=== PATIENT | male | born 1985 | race Hispanic/Latino ===

== ENCOUNTER 2017-11-03 06:49 | Emergency (ER) | payer OTHER ==
[2017-11-03 06:57] VITALS: O2SAT 97
--- NOTE | 2017-11-03 08:28 | ED PDOC ---
HPI: Male Pain Time Seen by Provider: 11/03/17 07:21 Chief Complaint (Nursing): Male Genitourinary Chief Complaint (Provider): Male Genitourinary History Per: Patient History/Exam Limitations: no limitations Onset/Duration Of Symptoms: Hrs (x 4) Current Symptoms Are (Timing): Constant Severity: Severe Quality Of Discomfort: Sharp, Stabbing Associated Symptoms: Other (Dysuria). denies: Fever, Chills, Nausea, Vomiting Additional Complaint(s): 31 years old male presents to the ED complaining of constant right-sided flank pain associated with dysuria and difficulty urinating onset 4 hours. Patient describes pain as stabbing, sharp, sever and intense and reports radiation of pain to right groin. He states he never experienced this pain before. Patient denies any nausea, vomiting, fever, chills, experiencing bloody urine or taking any medication for pain. PMD: non provided Past Medical History Reviewed: Historical Data, Nursing Documentation, Vital Signs Vital Signs: Last Vital Signs Temp 97.9 F 11/03/17 07:04 Pulse 81 11/03/17 07:04 Resp 18 11/03/17 07:04 BP 137/83 11/03/17 07:04 Pulse Ox 97 11/03/17 07:04 - Medical History PMH: Migraine Denies: Chronic Kidney Disease - Surgical History Surgical History: No Surg Hx - Family History Family History: States: Unknown Family Hx - Social History Current smoker - smoking cessation education provided: No Alcohol: Social Drugs: Denies - Immunization History Hx Tetanus Toxoid Vaccination: No Hx Influenza Vaccination: No Hx Pneumococcal Vaccination: No - Home Medications Home Medications: Ambulatory Orders Medication Instructions Recorded Ciprofloxacin HCl [Cipro] 500 mg PO BID #14 tablet 11/03/17 Tamsulosin [Flomax] 0.4 mg PO DAILY #10 cap 11/03/17 - Allergies Allergies/Adverse Reactions: Allergies Allergy/AdvReac Type Severity Reaction Status Date / Time amoxicillin Allergy SHORTNESS Verified 11/03/17 07:08 OF BREATH Review of Systems ROS Statement: Except As Marked, All Systems Reviewed And Found Negative Constitutional: Negative for: Fever, Chills Gastrointestinal: Positive for: Abdominal Pain (groin). Negative for: Nausea, Vomiting Genitourinary Male: Positive for: Dysuria Musculoskeletal: Positive for: Back Pain (Right flank) Physical Exam - Reviewed Nursing Documentation Reviewed: Yes Vital Signs Reviewed: Yes - Physical Exam Appears: Positive for: Non-toxic, No Acute Distress Head Exam: Positive for: ATRAUMATIC, NORMOCEPHALIC Skin: Positive for: Normal Color, Warm, Dry Eye Exam: Positive for: Normal appearance, EOMI, PERRL ENT: Positive for: Normal ENT Inspection Neck: Positive for: Normal, Supple Cardiovascular/Chest: Positive for: Regular Rate, Rhythm. Negative for: Murmur Respiratory: Positive for: Normal Breath Sounds. Negative for: Respiratory Distress Gastrointestinal/Abdominal: Positive for: Soft, Tenderness (mild to right lower quadrant) Back: Positive for: Normal Inspection. Negative for: L CVA Tenderness, R CVA Tenderness Neurologic/Psych: Positive for: Alert, Oriented - Laboratory Results Result Diagrams: 11/03/17 09:12 11/03/17 09:12 - ECG O2 Sat by Pulse Oximetry: 97 (RA) Pulse Ox Interpretation: Normal - Progress Re-evaluation Time: 12:47 Condition: Re-examined, Improved Medical Decision Making Medical Decision Making: Time: 922 Initial Impression: Flank pain and dysuria. Differential includes but not limited to nephrolithiasis, renal colic and UTI. Initial Plan: --CT Abdome/Pelvis w/o PO or IV Contrast --BMP --Urine Dipstick --CBC --NaCl 1,000 ml IV --Toradol 30 mg IVP ____ Time: 1015 CT Abd/ Pelvis FINDINGS: LOWER THORAX: There is dependent atelectasis in the lung bases, otherwise the visualized lungs are clear. LIVER: Normal in size. No gross lesion or ductal dilatation. GALLBLADDER AND BILE DUCTS: No calcified gallstones. PANCREAS: Normal in size. No gross lesion or ductal dilatation. SPLEEN: Normal in size. ADRENALS: No discrete nodule. KIDNEYS AND URETERS: There is a 3 mm obstructing stone in the right distal ureteral proximal to the UV junction with resultant mild diffuse dilatation of the right ureter, mild hydronephrosis, edema in the right kidney and perinephric fat stranding. The left kidney is normal in size without hydronephrosis or nephrolithiasis. VASCULATURE: No aortic aneurysm. BOWEL: The small bowel loops are normal in caliber. There is moderate amount of stool in the colon. No bowel dilatation or obstruction. APPENDIX: Normal appendix. PERITONEUM: No free fluid. No free air. LYMPH NODES: No enlarged lymph nodes. BLADDER: Partially decompressed. REPRODUCTIVE: Unremarkable. BONES: No acute fracture. Within normal limits for the patient's age. OTHER FINDINGS: None. IMPRESSION: 1. Mild right obstructive uropathy resulting from a 3 mm stone in the distal ureter proximal to the UV junction. 2. No left nephrolithiasis. Scribe Attestation: Documented by Tricia Vee, acting as a scribe for Cesra Black MD. Provider Scribe Attestation: All medical record entries made by the Scribe were at my direction and personally dictated by me. I have reviewed the chart and agree that the record accurately reflects my personal performance of the history, physical exam, medical decision making, and the department course for this patient. I have also personally directed, reviewed, and agree with the discharge instructions and disposition. Disposition - Clinical Impression Clinical Impression: Ureteral stone, Renal colic on right side - Patient ED Disposition Is Patient to be Admitted: No Doctor Will See Patient In The: Office Counseled Patient/Family Regarding: Studies Performed, Diagnosis, Need For Followup - Disposition Referrals: Juancarlos Ortega MD [Staff Provider] - Disposition: Routine/Home Disposition Time: 12:48 Condition: GOOD Additional Instructions: Take your medications as instructed. Follow up with your PCP in 2-3 days. Prescriptions: Ciprofloxacin HCl [Cipro] 500 mg PO BID #14 tablet Tamsulosin [Flomax] 0.4 mg PO DAILY #10 cap Instructions: Renal Colic (DC), Kidney Stones in Adults
[2017-11-03] MEDS ORDERED: Sodium Chloride 0.9% 1,000 ML IV STA (08:50)
[2017-11-03 09:19] LABS: BASO % 1.1 % (0.0-2.0); EOS # 0.2 K/uL (0.0-0.7); EOS % 4.4 % (0.0-4.0); HEMOGLOBIN 16.5 g/dL (12.0-18.0); LYMPH % 22.6 % (20.0-40.0); MEAN CELL VOLUME 88.5 fl (80.0-94.0); MEAN CORPUSCULAR HGB CONC 33.9 g/dL (33.0-37.0); MONO # 0.4 K/uL (0.0-0.8); MONO % 9.1 % (0.0-10.0); NEUT # 2.8 K/uL (1.8-7.0); NEUT % 62.8 % (50.0-75.0); NRBC % 0.2 % (0.0-0.0); RBC 5.49 Mil/uL (4.40-5.90); RED CELL DISTRIBUTION WIDTH 14.4 % (11.5-14.5); WHITE BLOOD COUNT 4.4 K/uL (4.8-10.8)
[2017-11-03 09:46] LABS: CALCIUM 9.7 mg/dL (8.4-10.2); GFR AFRICAN-AMERICAN > 60; GFR NON-AFRICAN AMERICAN > 60
[2017-11-03 09:56] LABS: BLOOD UREA NITROGEN 18 mg/dl (9-20)
--- NOTE | 2017-11-03 10:17 | CT ---
PROCEDURE: CT Abdomen and Pelvis without intravenous contrast HISTORY: Right flank pain COMPARISON: None. TECHNIQUE: CT scan of the abdomen and pelvis was performed without administration of intravenous contrast. Oral contrast was not administered. Coronal and sagittal reformatted images were obtained. Radiation dose: Total exam DLP = Total exam DLP = 918.30 mGy-cm. This CT exam was performed using one or more of the following dose reduction techniques: Automated exposure control, adjustment of the mA and/or kV according to patient size, and/or use of iterative reconstruction technique. FINDINGS: LOWER THORAX: There is dependent atelectasis in the lung bases, otherwise the visualized lungs are clear. LIVER: Normal in size. No gross lesion or ductal dilatation. GALLBLADDER AND BILE DUCTS: No calcified gallstones. PANCREAS: Normal in size. No gross lesion or ductal dilatation. SPLEEN: Normal in size. ADRENALS: No discrete nodule. KIDNEYS AND URETERS: There is a 3 mm obstructing stone in the right distal ureteral proximal to the UV junction with resultant mild diffuse dilatation of the right ureter, mild hydronephrosis, edema in the right kidney and perinephric fat stranding. The left kidney is normal in size without hydronephrosis or nephrolithiasis. VASCULATURE: No aortic aneurysm. BOWEL: The small bowel loops are normal in caliber. There is moderate amount of stool in the colon. No bowel dilatation or obstruction. APPENDIX: Normal appendix. PERITONEUM: No free fluid. No free air. LYMPH NODES: No enlarged lymph nodes. BLADDER: Partially decompressed. REPRODUCTIVE: Unremarkable. BONES: No acute fracture. Within normal limits for the patient's age. OTHER FINDINGS: None. IMPRESSION: 1. Mild right obstructive uropathy resulting from a 3 mm stone in the distal ureter proximal to the UV junction. 2. No left nephrolithiasis.
[2017-11-03 11:41] VITALS: BP 136/76; PULSE 75; RESP 20; TEMP 98
== END 2017-11-03 13:00 | disposition home or self-care (01) ==
LOC: H.ER 06:49
DX: N13.2 Hydronephrosis with renal and ureteral calculous obstruction (principal); N39.0 Urinary tract infection, site not specified
CPT/HCPCS: 74176; 80048; 85025; 96361; 96374; 96376; 99285; J1885; J7040